=== PATIENT | female | born 1990 | race Caucasian/White ===

== ENCOUNTER 2019-08-24 20:21 | Emergency (ER) | payer SELFPAY ==
[~2019-08-24] VITALS: Ht 160 cm; Wt 64.9 kg
[2019-08-24 21:14] VITALS: Ht 160 cm; Wt 64.9 kg
[2019-08-25 00:50] VITALS: BP 122/64
== END 2019-08-25 00:50 | disposition home or self-care (01) ==
LOC: ED 20:21
DX: J02.9 Acute pharyngitis, unspecified (principal)
CPT/HCPCS: J1100